=== PATIENT | female | born 1990 | race Caucasian/White ===

== ENCOUNTER 2018-07-01 19:04 | Emergency (ER) | payer MEDICAID ==
[~2018-07-01] VITALS: Ht 144.8 cm; Wt 88.2 kg
[2018-07-01 19:22] VITALS: BP 132/77
--- NOTE | 2018-07-01 19:25 | NUR ---
TO LOBBY, A/W MAINOR TIRADO, SANJUANA ERMD NOTED
--- NOTE | 2018-07-01 22:02 | NUR ---
PATIENT PRESENTS TO ED WITH C/O HEADACHE AND CELLULITIS WITH FLUID SAC BEHIND LEFT EAR WITH REDNESS AND SWELLING. PT DENIES N/V/D; SKIN IS PINK/WARM/DRY; AAOX4 WITH EVEN AND STEADY GAIT; LUNGS CLEAR BL; HR EVEN AND REGULAR; PATIENT STATES PAIN OF 10/10 AT THIS TIME; VSS; PATIENT POSITIONED FOR COMFORT; HOB ELEVATED; BEDRAILS UP X2; BED DOWN.
--- NOTE | 2018-07-01 22:21 | NUR ---
Dr. Gonzalez evaluating patient.
[2018-07-02 01:03] VITALS: BP 129/78
== END 2018-07-02 01:04 | disposition home or self-care (01) ==
LOC: MED 19:04
DX: L82.1 Other seborrheic keratosis (principal)
CPT/HCPCS: 99283

== ENCOUNTER 2018-08-12 11:23 | Emergency (ER) | payer MEDICAID ==
[~2018-08-12] VITALS: Ht 142.2 cm; Wt 72.6 kg
[2018-08-12 11:29] VITALS: BP 141/79
[2018-08-12 12:16] VITALS: BP 117/73
== END 2018-08-12 12:16 | disposition home or self-care (01) ==
LOC: MED 11:23
DX: S93.402A Sprain of unspecified ligament of left ankle, initial encounter (principal); X58.XXXA Exposure to other specified factors, initial encounter; Y93.89 Activity, other specified; Y92.89 Other specified places as the place of occurrence of the external cause; Y99.8 Other external cause status
CPT/HCPCS: 73610; 99284

== ENCOUNTER 2024-02-15 11:21 | Emergency (ER) | payer MEDICAID, OTHER ==
[~2024-02-15] VITALS: Ht 142.2 cm; Wt 83.5 kg
[2024-02-15 11:31] VITALS: BP 137/85; PULSE 77; RESP 18; TEMP 98.9; O2SAT 99
[2024-02-15 12:22] LABS: BASOPHILS # (AUTO) 0.1 K/uL (0.00-0.22); BASOPHILS % (AUTO) 0.6 % (0.0-2.0); EOSINOPHILS # (AUTO) 0.4 K/uL (0-0.4); EOSINOPHILS % (AUTO) 3.3 % (0.0-4.0); HEMATOCRIT 36.2 % (36-48); HEMOGLOBIN 12.3 g/dL (12.0-16.0); MEAN CORPUSCULAR HEMOGLOBIN 29 pg (27-31); MEAN CORPUSCULAR HGB CONC 34 g/dL (33-37); MEAN CORPUSCULAR VOLUME 83.8 fL (80-94); MONOCYTES # (AUTO) 0.8 K/uL (0.8-1.0); MONOCYTES % (AUTO) 6.9 % (1.7-9.3); NEUTROPHILS # (AUTO) 5.7 K/uL (1.8-7.7); NEUTROPHILS % (AUTO) 52.2 % (42.2-75.2); PLATELET COUNT (AUTO) 352 K/uL (140-450); RED BLOOD CELL COUNT(AUTO) 4.31 MIL/uL (4.20-5.40); RED CELL DISTRIBUTION WIDTH 14.5 % (11.6-13.7); WHITE BLOOD COUNT (AUTO) 10.9 K/uL (4.8-10.8)
[2024-02-15 12:29] LABS: APPEARANCE,URINE CLEAR (CLEAR); BILIRUBIN,URINE NEGATIVE (NEGATIVE); BLOOD, URINE NEGATIVE (NEGATIVE); COLOR,URINE YELLOW (YELLOW); LEUKOCYTE ESTERASE ,URINE NEGATIVE (NEGATIVE); NITRITE, URINE NEGATIVE (NEGATIVE); PROTEIN,URINE NEGATIVE (NEGATIVE); UGLUCOSE NEGATIVE (NEGATIVE); UROBILINOGEN,URINE 0.2 EU/dL (0.2 - 1)
[2024-02-15 12:37] LABS: ALBUMIN 3.1 g/dL (3.4-5.0); ANION GAP 13.7 (8-16); CALCIUM 8.6 mg/dL (8.5-10.1); CARBON DIOXIDE 25.1 mmol/L (21-32); CREATININE 0.6 mg/dL (0.6-1.3); POTASSIUM 3.8 mmol/L (3.5-5.1); TOTAL BILIRUBIN 0.4 mg/dL (0.0-1.0); TOTAL PROTEIN, SERUM 7.3 g/dL (6.4-8.2)
[2024-02-15] MEDS: KETOROLAC 30 MG/ML VIAL IM ONE (12:42)
[2024-02-15 12:44] VITALS: TEMP 98.9
[2024-02-15] MEDS: ACETAMINOPHEN EXTRA STRENGTH 500 MG TAB PO ONE (12:44)
[2024-02-15] MEDS ORDERED: FAMO-90 PO (13:57)
[2024-02-15] MEDS ORDERED: MAG355OR2 PO (13:57)
[2024-02-15 14:10] VITALS: BP 111/55; PULSE 57; RESP 14; O2SAT 98
== END 2024-02-15 14:10 | disposition home or self-care (01) ==
LOC: MED 11:21
DX: K76.0 Fatty (change of) liver, not elsewhere classified (principal); K29.70 Gastritis, unspecified, without bleeding; E88.09 Other disorders of plasma-protein metabolism, not elsewhere classified; Z79.899 Other long term (current) drug therapy
CPT/HCPCS: 36415; 76705; 80053; 81003; 81025; 83690; 85025; 96372; 99285; J1885; Q0092